=== PATIENT | male | born 2005 | race Native Hawaiian/Other Pacific Islander ===

== ENCOUNTER 2023-03-05 13:24 | Emergency (ER) | payer OTHER ==
[~2023-03-05] VITALS: Ht 180.3 cm; Wt 97.5 kg
[2023-03-05 13:27] VITALS: TEMP 98.2
[2023-03-05 14:36] LABS: PLATELET COUNT 320 K/uL (142-355)
[2023-03-05 14:44] LABS: POTASSIUM 3.6 mmol/L (3.6-5.2)
[2023-03-05 16:14] VITALS: BP 101/64
== END 2023-03-05 16:14 | disposition home or self-care (01) ==
LOC: ED 13:24
PROVIDERS: Family Medicine
DX: L55.9 Sunburn, unspecified (principal); L56.8 Other specified acute skin changes due to ultraviolet radiation
CPT/HCPCS: 80053; 85027; 96361; 96374; 96375; 99284; J1200